=== PATIENT | female | born 1990 | race Caucasian/White ===

== ENCOUNTER 2022-02-06 09:37 | Emergency (ER) | payer BC ==
[~2022-02-06] VITALS: Ht 170.2 cm; Wt 77.1 kg
[2022-02-06 09:50] VITALS: BP 124/83
--- NOTE | 2022-02-06 10:50 | NUR ---
Patient discharged to home in stable condition. Written and verbal after care instructions given. Patient verbalizes understanding of instruction.
== END 2022-02-06 10:50 | disposition home or self-care (01) ==
LOC: ER 09:47
DX: R21 Rash and other nonspecific skin eruption (principal)